=== PATIENT | female | born 1965 | race Caucasian/White ===

== ENCOUNTER 2016-09-09 08:13 | Inpatient (IN) | payer OTHER ==
[~2016-09-09] VITALS: Ht 162.6 cm; Wt 89.3 kg
[~2016-09-09 08:13] MED LIST: APAP/HYDROCODON1 T13 PO; COL100 PO; COREG12.5 MG PO; FLO4 PO; FLUCONAZOLE100 MG PO; GLU500 PO; GUAIFENESIN PO; LAC PO; LEVAQUIN750 MG PO; MEDDP PO; NOR10T PO; PERCOCET1 TA2 PO; ZOC20 PO; [UNRECOGNIZED DRUG - OTHER] PO
[2016-09-09 09:16] LABS: CALCIUM 8.7 mg/dL (8.5-10.1); CARBON DIOXIDE 28.6 mmol/L (21-32); CHLORIDE SERUM 105 mmol/L (98-107); CREATININE SERUM 0.7 mg/dL (0.6-1.0); GFR1 > 60 mL/min; GLUCOSE SERUM 188 mg/dL (74-106); POTASSIUM SERUM 3.4 mmol/L (3.5-5.1); SODIUM SERUM 142 mmol/L (136-145)
[2016-09-09 09:21] LABS: ALBUMIN 3.6 g/dL (3.4-5.0); ALKALINE PHOSPHATASE 80 U/L (46-116); ALT/SGPT 30 U/L (14-59); AST/SGOT 28 U/L (15-37); BILIRUBIN TOTAL 0.53 mg/dL (0.20-1.00); HDL CHOLESTEROL 47 mg/dL (40-60); TOTAL PROTEIN, SERUM 7.5 g/dL (6.4-8.2)
[2016-09-09 09:23] LABS: CHOLESTEROL 220 mg/dL (<200)
[2016-09-09 09:24] LABS: BASOPHIL % 0.4 % (0-2); PLATELET COUNT 259 x10^3mcL (130-400); RED CELL DISTRIBUTION WIDTH 14.5 % (11.5-14.5)
[2016-09-09] MEDS ORDERED: GLUCOTROL5 MG PO (11:24)
[2016-09-09 11:42] LABS: microscopic required? NO
[2016-09-09 12:22] LABS: T3 TOTAL 1.59 ng/mL
[2016-09-09 12:23] LABS: MAGNESIUM 1.8 mg/dL (1.8-2.4); PHOSPHOROUS 2.9 mg/dL (2.5-4.9)
[2016-09-09 12:29] LABS: CHOLESTEROL/HDL RATIO 4.9
[2016-09-09 12:33] LABS: FREE T4 1.22 ng/dL (0.76-1.46); FREE THYROXINE INDEX 2.4 ug/dL (1.4-4.5); T4(THYROXINE) 7.5 ug/dL (4.7-13.3)
[2016-09-09 12:39] LABS: UA SPECIFIC GRAVITY 1.015 (1.005-1.035); urine erythrocyte NEGATIVE (NEGATIVE)
[2016-09-09 13:25] VITALS: BP 129/72
[2016-09-09 14:06] VITALS: BP 138/80
[2016-09-09 15:29] VITALS: BP 138/80
[2016-09-09 17:22] VITALS: BP 145/84
[2016-09-09 20:32] VITALS: BP 128/77
[2016-09-10 05:25] VITALS: BP 113/67
[2016-09-10 06:50] LABS: BASOPHIL % 0.1 % (0-2); PLATELET COUNT 240 x10^3mcL (130-400); RED CELL DISTRIBUTION WIDTH 14.3 % (11.5-14.5)
[2016-09-10 07:07] LABS: CALCIUM 8.9 mg/dL (8.5-10.1); CARBON DIOXIDE 26.5 mmol/L (21-32); CHLORIDE SERUM 104 mmol/L (98-107); CREATININE SERUM 0.7 mg/dL (0.6-1.0); GFR1 > 60 mL/min; GLUCOSE SERUM 259 mg/dL (74-106); POTASSIUM SERUM 3.9 mmol/L (3.5-5.1); SODIUM SERUM 140 mmol/L (136-145)
[2016-09-10 08:52] VITALS: BP 133/77
[2016-09-10 16:07] LABS: microscopic required? YES; urine erythrocyte NEGATIVE (NEGATIVE)
[2016-09-10 17:45] VITALS: BP 110/56
[2016-09-10 21:40] VITALS: BP 126/75
[2016-09-11 06:02] VITALS: BP 138/60
[2016-09-11 06:56] LABS: BASOPHIL % 0.3 % (0-2); PLATELET COUNT 241 x10^3mcL (130-400)
[2016-09-11 06:57] LABS: RED CELL DISTRIBUTION WIDTH 15.1 % (11.5-14.5)
[2016-09-11 07:06] LABS: CALCIUM 8.7 mg/dL (8.5-10.1); CARBON DIOXIDE 26.6 mmol/L (21-32); CHLORIDE SERUM 106 mmol/L (98-107); CREATININE SERUM 0.7 mg/dL (0.6-1.0); GFR1 > 60 mL/min; GLUCOSE SERUM 171 mg/dL (74-106); MAGNESIUM 2.4 mg/dL (1.8-2.4); POTASSIUM SERUM 3.9 mmol/L (3.5-5.1); SODIUM SERUM 142 mmol/L (136-145)
[2016-09-11 09:26] VITALS: BP 115/70
[2016-09-11] MEDS ORDERED: CLA10 PO (10:28)
[2016-09-11] MEDS ORDERED: MAC100 PO (10:29)
[2016-09-11] MEDS ORDERED: VENTOLIN H0.09 MG/A1 INH (10:31)
[2016-09-11] MEDS ORDERED: PULMICORT180 MCG/Ac INH (10:32)
[2016-09-11] MEDS ORDERED: LAC PO (10:32)
[2016-09-11] MEDS ORDERED: ZES10 PO (10:34)
[2016-09-11] MEDS ORDERED: GLU5 PO (10:36)
[2016-09-11] MEDS ORDERED: MEDROL DOSEPAK4 MG PO (10:57)
[2016-09-11] MEDS ORDERED: ROBACL PO (11:04)
[2016-09-11 13:29] VITALS: BP 115/70
== END 2016-09-11 14:27 | disposition home or self-care (01) | DRG 189 ==
LOC: ED 08:13 → DU 11:05 → ED 11:05 → DU 11:09 → MU 09-11 11:09
PROVIDERS: Emergency Medicine; ADMIT Family Medicine
DX: J96.01 Acute respiratory failure with hypoxia (principal); J18.9 Pneumonia, unspecified organism; N17.0 Acute kidney failure with tubular necrosis; J45.901 Unspecified asthma with (acute) exacerbation; J44.1 Chronic obstructive pulmonary disease with (acute) exacerbation; J44.0 Chronic obstructive pulmonary disease with (acute) lower respiratory infection; Z96.89 Presence of other specified functional implants; I10 Essential (primary) hypertension; E11.9 Type 2 diabetes mellitus without complications; E78.5 Hyperlipidemia, unspecified; I16.0 Hypertensive urgency; E66.9 Obesity, unspecified; E87.6 Hypokalemia; Z91.14 Patient's other noncompliance with medication regimen; Z90.710 Acquired absence of both cervix and uterus; Z68.33 Body mass index [BMI] 33.0-33.9, adult; Z87.442 Personal history of urinary calculi; Z87.891 Personal history of nicotine dependence; Z83.3 Family history of diabetes mellitus; Z80.8 Family history of malignant neoplasm of other organs or systems; Z79.84 Long term (current) use of oral hypoglycemic drugs
CPT/HCPCS: 83880; 84439; 94150; J0456; J0696; J1644; J2270; J2405; J2920; J2930; J3010; J7030; J7613; J7620; J7644; Q0092

== ENCOUNTER 2018-06-23 16:11 | Inpatient (IN) | payer OTHER ==
[~2018-06-23] VITALS: Ht 165.1 cm; Wt 75.1 kg
[~2018-06-23 16:11] MED LIST changes: +CLA10 PO; +GLU5 PO; +GLUCOTROL5 MG PO; +MAC100 PO; +MEDROL DOSEPAK4 MG PO; +PULMICORT180 MCG/Ac INH; +ROBACL PO; +VENTOLIN H0.09 MG/A1 INH; +ZES10 PO
[2018-06-23 16:22] VITALS: BP 134/89
[2018-06-23 17:37] LABS: AMPHETAMINE QUAL UR NONE DETECTED (See below)
[2018-06-23 17:40] LABS: PLATELET COUNT 325 x10^3mcL (130-400); RED CELL DISTRIBUTION WIDTH 14.4 % (11.5-14.5)
[2018-06-23 17:50] LABS: CALCIUM 8.3 mg/dL (8.5-10.1); CARBON DIOXIDE 28.8 mmol/L (21-32); CHLORIDE SERUM 104 mmol/L (98-107); CREATININE SERUM 0.7 mg/dL (0.6-1.0); GFR1 > 60 mL/min; GLUCOSE SERUM 250 mg/dL (74-106); POTASSIUM SERUM 4.2 mmol/L (3.5-5.1); SODIUM SERUM 141 mmol/L (136-145)
[2018-06-23 17:55] LABS: ALBUMIN 3.4 g/dL (3.4-5.0); ALKALINE PHOSPHATASE 83 U/L (46-116); ALT/SGPT 137 U/L (14-59); AST/SGOT 153 U/L (15-37); BILIRUBIN TOTAL 0.3 mg/dL (0.20-1.00); TOTAL PROTEIN, SERUM 7.3 g/dL (6.4-8.2)
[2018-06-23 18:16] LABS: BAND NEUTROPHIL 8 % (0-10); BASOPHIL 0 % (0-2); MONOCYTE 4 % (0-7); SEGMENTED NEUTROPHILS 80 % (37-75)
[2018-06-23 18:19] LABS: PLATELET MORPHOLOGY PLATELETS NORMAL; rbc morphology (normal/abnorm) NORMAL (NORMAL)
[2018-06-23 18:41] VITALS: BP 164/91
[2018-06-23 19:00] VITALS: BP 121/47; BP 200/106
[2018-06-23 19:38] LABS: CHOLESTEROL/HDL RATIO 4.9; MAGNESIUM 1.7 mg/dL (1.8-2.4)
[2018-06-23 19:48] LABS: FREE T4 0.91 ng/dL (0.76-1.46); FREE THYROXINE INDEX 2.4 ug/dL (1.4-4.5); T4(THYROXINE) 6.2 ug/dL (4.7-13.3)
[2018-06-23 19:56] LABS: UA SPECIFIC GRAVITY 1.025 (1.005-1.035); microscopic required? YES; urine erythrocyte 2+ (NEGATIVE)
[2018-06-23 20:22] LABS: T3 TOTAL 1.24 ng/mL
[2018-06-23 20:27] VITALS: BP 131/88
[2018-06-23 21:45] VITALS: BP 121/47
[2018-06-23 23:45] VITALS: BP 102/68; BP 90/63
[2018-06-24] VITALS (17 sets, daily range): BP systolic 98–143; BP diastolic 60–92
[2018-06-24 05:26] LABS: BASOPHIL % 0.3 % (0-2); PLATELET COUNT 180 x10^3mcL (130-400); RED CELL DISTRIBUTION WIDTH 14.5 % (11.5-14.5)
[2018-06-24 05:38] LABS: CALCIUM 8.2 mg/dL (8.5-10.1); CARBON DIOXIDE 28.8 mmol/L (21-32); CHLORIDE SERUM 106 mmol/L (98-107); CREATININE SERUM 0.5 mg/dL (0.6-1.0); GFR1 > 60 mL/min; GLUCOSE SERUM 190 mg/dL (74-106); MAGNESIUM 2.1 mg/dL (1.8-2.4); PHOSPHOROUS 1.9 mg/dL (2.5-4.9); POTASSIUM SERUM 3.7 mmol/L (3.5-5.1); SODIUM SERUM 141 mmol/L (136-145)
[2018-06-25] VITALS (15 sets, daily range): BP systolic 138–168; BP diastolic 79–99
[2018-06-25 05:30] LABS: BASOPHIL % 0.3 % (0-2); PLATELET COUNT 187 x10^3mcL (130-400)
[2018-06-25 05:34] LABS: RED CELL DISTRIBUTION WIDTH 14.7 % (11.5-14.5)
[2018-06-25 05:42] LABS: CALCIUM 8.4 mg/dL (8.5-10.1); CARBON DIOXIDE 28.5 mmol/L (21-32); CHLORIDE SERUM 107 mmol/L (98-107); CREATININE SERUM 0.5 mg/dL (0.6-1.0); GFR1 > 60 mL/min; GLUCOSE SERUM 226 mg/dL (74-106); PHOSPHOROUS 2.3 mg/dL (2.5-4.9); POTASSIUM SERUM 3.5 mmol/L (3.5-5.1); SODIUM SERUM 143 mmol/L (136-145)
[2018-06-26] VITALS (15 sets, daily range): BP systolic 100–166; BP diastolic 58–111
[2018-06-26 06:03] LABS: BASOPHIL % 0.1 % (0-2); PLATELET COUNT 220 x10^3mcL (130-400); RED CELL DISTRIBUTION WIDTH 14.4 % (11.5-14.5)
[2018-06-26 06:16] LABS: CALCIUM 8.7 mg/dL (8.5-10.1); CARBON DIOXIDE 31.6 mmol/L (21-32); CHLORIDE SERUM 106 mmol/L (98-107); CREATININE SERUM 0.6 mg/dL (0.6-1.0); GFR1 > 60 mL/min; GLUCOSE SERUM 217 mg/dL (74-106); MAGNESIUM 2.2 mg/dL (1.8-2.4); PHOSPHOROUS 1.9 mg/dL (2.5-4.9); POTASSIUM SERUM 3.5 mmol/L (3.5-5.1); SODIUM SERUM 142 mmol/L (136-145)
[2018-06-27] VITALS (12 sets, daily range): BP systolic 100–166; BP diastolic 64–111
[2018-06-27 05:19] LABS: CALCIUM 8.8 mg/dL (8.5-10.1); CARBON DIOXIDE 35.4 mmol/L (21-32); CHLORIDE SERUM 105 mmol/L (98-107); CREATININE SERUM 0.5 mg/dL (0.6-1.0); GFR1 > 60 mL/min; GLUCOSE SERUM 129 mg/dL (74-106); SODIUM SERUM 145 mmol/L (136-145)
[2018-06-27 05:26] LABS: BASOPHIL % 0.3 % (0-2); PLATELET COUNT 267 x10^3mcL (130-400)
[2018-06-27 05:28] LABS: RED CELL DISTRIBUTION WIDTH 14.6 % (11.5-14.5)
[2018-06-27 05:30] LABS: POTASSIUM SERUM 2.9 mmol/L (3.5-5.1)
[2018-06-28 03:14] VITALS: BP 141/79
[2018-06-28 05:03] LABS: BASOPHIL % 0.1 % (0-2); PLATELET COUNT 274 x10^3mcL (130-400); RED CELL DISTRIBUTION WIDTH 14.2 % (11.5-14.5)
[2018-06-28 05:09] LABS: CALCIUM 8.8 mg/dL (8.5-10.1); CARBON DIOXIDE 30.9 mmol/L (21-32); CHLORIDE SERUM 99 mmol/L (98-107); CREATININE SERUM 0.8 mg/dL (0.6-1.0); GFR1 > 60 mL/min; GLUCOSE SERUM 186 mg/dL (74-106); PHOSPHOROUS 2.3 mg/dL (2.5-4.9); SODIUM SERUM 140 mmol/L (136-145)
[2018-06-28 07:42] VITALS: BP 176/47
[2018-06-28 15:42] VITALS: BP 157/102
[2018-06-28 19:58] VITALS: BP 153/79
[2018-06-29 06:02] VITALS: BP 148/82
[2018-06-29 08:28] LABS: BASOPHIL % 0.4 % (0-2); PLATELET COUNT 316 x10^3mcL (130-400); RED CELL DISTRIBUTION WIDTH 14.4 % (11.5-14.5)
[2018-06-29 08:34] LABS: CALCIUM 9.3 mg/dL (8.5-10.1); CARBON DIOXIDE 28.4 mmol/L (21-32); CHLORIDE SERUM 98 mmol/L (98-107); CREATININE SERUM 0.7 mg/dL (0.6-1.0); GFR1 > 60 mL/min; GLUCOSE SERUM 159 mg/dL (74-106); SODIUM SERUM 137 mmol/L (136-145)
[2018-06-29 10:46] VITALS: BP 116/73
[2018-06-29 10:51] VITALS: BP 116/73
[2018-06-29 12:22] VITALS: Ht 165.1 cm; Wt 75.1 kg
[2018-06-29 12:50] VITALS: BP 141/69
[2018-06-29 18:05] VITALS: BP 137/78
[2018-06-29 20:59] VITALS: BP 140/92
[2018-06-30 06:06] VITALS: BP 126/79
[2018-06-30 09:11] VITALS: BP 121/69
[2018-06-30 10:54] VITALS: BP 121/69
[2018-06-30 11:35] LABS: CALCIUM 8.6 mg/dL (8.5-10.1); CARBON DIOXIDE 30.8 mmol/L (21-32); CHLORIDE SERUM 106 mmol/L (98-107); CREATININE SERUM 0.8 mg/dL (0.6-1.0); GFR1 > 60 mL/min; GLUCOSE SERUM 232 mg/dL (74-106); POTASSIUM SERUM 3.1 mmol/L (3.5-5.1); SODIUM SERUM 140 mmol/L (136-145)
[2018-06-30 11:38] LABS: BASOPHIL % 0.4 % (0-2); PLATELET COUNT 256 x10^3mcL (130-400)
[2018-06-30 11:39] LABS: RED CELL DISTRIBUTION WIDTH 14.6 % (11.5-14.5)
[2018-06-30 12:38] VITALS: BP 116/70
[2018-06-30 17:20] VITALS: BP 121/69
[2018-06-30 21:22] VITALS: BP 111/72
[2018-07-01 05:50] VITALS: BP 123/55
[2018-07-01 06:30] LABS: BASOPHIL % 0.3 % (0-2); PLATELET COUNT 217 x10^3mcL (130-400)
[2018-07-01 06:34] LABS: CALCIUM 8.2 mg/dL (8.5-10.1); CARBON DIOXIDE 28.1 mmol/L (21-32); CHLORIDE SERUM 108 mmol/L (98-107); CREATININE SERUM 0.7 mg/dL (0.6-1.0); GFR1 > 60 mL/min; GLUCOSE SERUM 132 mg/dL (74-106); SODIUM SERUM 145 mmol/L (136-145)
[2018-07-01 06:35] LABS: RED CELL DISTRIBUTION WIDTH 14.8 % (11.5-14.5)
[2018-07-01 09:55] VITALS: BP 128/81
[2018-07-01 11:33] VITALS: BP 128/81
[2018-07-01 12:17] VITALS: BP 141/78
== END 2018-07-01 15:16 | disposition home or self-care (01) | DRG 208 ==
LOC: ED 16:11 → IC 18:59 → DU 18:59 → IC 19:43 → DU 06-28 19:20
PROVIDERS: Emergency Medicine; Internal Medicine; ADMIT Family Medicine
PROC: 5A1945Z Respiratory Ventilation, 24-96 Consecutive Hours (ICD-10-PCS; principal; 2018-06-23)
PROC: 0BH17EZ Insertion of Endotracheal Airway into Trachea, Via Natural or Artificial Opening (ICD-10-PCS; 2018-06-23)
PROC: 02HV33Z Insertion of Infusion Device into Superior Vena Cava, Percutaneous Approach (ICD-10-PCS; 2018-06-23)
PROC: B548ZZA Ultrasonography of Superior Vena Cava, Guidance (ICD-10-PCS; 2018-06-23)
DX: J69.0 Pneumonitis due to inhalation of food and vomit (principal); J96.21 Acute and chronic respiratory failure with hypoxia; I46.9 Cardiac arrest, cause unspecified; N17.0 Acute kidney failure with tubular necrosis; J96.22 Acute and chronic respiratory failure with hypercapnia; E44.1 Mild protein-calorie malnutrition; G72.81 Critical illness myopathy; I47.1 Supraventricular tachycardia; I10 Essential (primary) hypertension; J44.9 Chronic obstructive pulmonary disease, unspecified; F14.10 Cocaine abuse, uncomplicated; D72.829 Elevated white blood cell count, unspecified; E11.65 Type 2 diabetes mellitus with hyperglycemia; E83.39 Other disorders of phosphorus metabolism; E83.42 Hypomagnesemia; E05.80 Other thyrotoxicosis without thyrotoxic crisis or storm; I48.91 Unspecified atrial fibrillation; F11.10 Opioid abuse, uncomplicated; R74.0 Nonspecific elevation of levels of transaminase and lactic acid dehydrogenase [LDH]; Z98.891 History of uterine scar from previous surgery; Z90.710 Acquired absence of both cervix and uterus; Z87.891 Personal history of nicotine dependence; Z83.3 Family history of diabetes mellitus; Z80.9 Family history of malignant neoplasm, unspecified; Z68.28 Body mass index [BMI] 28.0-28.9, adult
CPT/HCPCS: 36556; 36600; 82962; 83880; 84439; 85378; 92526-GN; 92610; A4628; G0480; J0282; J0360; J1642; J1644; J1815; J1885; J2060; J2250; J2270; J2405; J2543; J2704; J2920; J3010; J3370; J3475; J3480; J3490; J7030; J7613; J7620; Q0092; Q9967